=== PATIENT | female | born 1975 | race Caucasian/White ===

== ENCOUNTER 2019-02-01 10:12 | Outpatient (CLI) | payer BC, OTHER | END 2019-02-02 20:56 | disposition home or self-care (01) | LOC: SRD 10:12 | DX: M19.071 Primary osteoarthritis, right ankle and foot (principal); M19.072 Primary osteoarthritis, left ankle and foot; M21.611 Bunion of right foot; M77.31 Calcaneal spur, right foot; M20.11 Hallux valgus (acquired), right foot; M20.12 Hallux valgus (acquired), left foot; M77.32 Calcaneal spur, left foot ==